=== PATIENT | male | born 1960 | race Caucasian/White ===

== ENCOUNTER 2020-10-10 18:01 | Emergency (ER) | payer MEDICAID ==
[2020-10-10] MEDS ORDERED: MVI, Adult with Vitamin K 10 ML, Thiamine 100 MG, Folic Acid 1 MG in Lactated Ringers 1... IV ONE ×4 (18:25)
--- NOTE | 2020-10-10 18:30 | EDM.PDOCBH ---
<Sandra Mcadams - Last Filed: 10/10/20 18:42> ED HPI GENERAL MEDICAL PROBLEM - General Chief Complaint: Drug or Alcohol Abuse Stated Complaint: DETOX Time Seen by Provider: 10/10/20 18:26 Source of Information: Reports: Patient, RN, RN Notes Reviewed History Limitations: Reports: No Limitations - History of Present Illness INITIAL COMMENTS - FREE TEXT/NARRATIVE: Patient presents to the ED via personal vehicle requesting assistance with detox from alcohol. The patient states he has been drinking about three "whiskey chokes" every day for the past three months. He states his last drink was three days ago. He has gone through detox from alcohol previously, most recently in May 2020 in [place]. He does attest to a history of seizure with detox; he is not currently taking any anti-seizure medications. He does attest to dizziness over the past five days and feels as though he is not balanced properly when he walks. He denies fever, shaking chills, headache, vision changes, cough, chest pain/pressure, palpitations, dyspepsia, abdominal pain, nausea, vomiting, dysuria, hematuria, diarrhea, melena, or hematochezia. He does attest to smoking one pack of cigarettes per day. He denies recreational drug use. - Related Data Allergies Allergy/AdvReac Type Severity Reaction Status Date / Time No Known Allergies Allergy Verified 10/10/20 18:09 Home Meds: Home Meds Acetaminophen 325 mg PO Q4HR PRN 05/21/20 [History] Folic Acid 1 mg PO DAILY 05/21/20 [History] Nicotine [Habitrol] 14 mg TRDERM DAILY PRN 05/21/20 [History] Pantoprazole [ProTONIX] 40 mg PO DAILY 05/21/20 [History] Albuterol/Ipratropium [DuoNeb 3.0-0.5 MG/3 ML] 3 ml NEB Q4H PRN 30 Days #1 box 06/10/20 [Rx] Past Medical History Gastrointestinal History: Reports: Pancreatitis Genitourinary History: Reports: Other (See Below) Other Genitourinary History: L hydrocele Psychiatric History: Reports: Other (See Below) Other Psychiatric History: alcohol abuse Endocrine/Metabolic History: Reports: Hypokalemia, Hypomagnesemia - Past Surgical History GI Surgical History: Reports: Hernia Repair/Other Social & Family History - Tobacco Use Tobacco Use Status *Q: Current Every Day Tobacco User Years of Tobacco use: 18 Packs/Tins Daily: 5 - Caffeine Use Caffeine Use: Reports: None - Alcohol Use Days Per Week of Alcohol Use: 7 Number of Drinks Per Day: 3 Total Drinks Per Week: 21 - Recreational Drug Use Recreational Drug Use: No ED ROS GENERAL - Review of Systems Review Of Systems: Comprehensive ROS is negative, except as noted in HPI. ED EXAM, BEHAVIORAL HEALTH - Physical Exam Exam: See Below Exam Limited By: No Limitations General Appearance: Alert, No Apparent Distress Eye Exam: Bilateral Eye: EOMI, Nystagmus (Jerk nystagmus), PERRL, Other (Scleral icterus) Throat/Mouth: Normal Inspection, Normal Voice, No Airway Compromise Head: Atraumatic, Normocephalic Neck: Normal Inspection, Supple, Non-Tender, Full Range of Motion Respiratory/Chest: Chest Non-Tender, Rhonchi Cardiovascular: Normal Peripheral Pulses, No Edema, No Gallop, No JVD, No Murmur, No Rub, Tachycardia GI/Abdominal: Normal Bowel Sounds, Soft, Non-Tender, No Distention, No Mass, Pelvis Stable Back Exam: Normal Inspection, Full Range of Motion. No: CVA Tenderness (L), CVA Tenderness (R) Extremities: Normal Inspection, Normal Range of Motion, Non-Tender, No Pedal Edema, Normal Capillary Refill Neurological: Alert, Normal Mood/Affect, CN II-XII Intact, Normal Cognition, Normal Gait, No Motor/Sensory Deficits, Oriented x 3, Opens Eyes to Commands Psychiatric: Alert, Normal Affect, Normal Cognition, Oriented Skin Exam: Warm, Dry, Intact, Normal color, No rash. No: Ecchymosis, Erythema, Mottled, Pallor, Petechiae Departure - Departure Disposition: Home, Self-Care 01 Clinical Impression: Alcohol abuse, Hypokalemia - Discharge Information Instructions: Potassium Content of Foods Forms: ED Department Discharge Additional Instructions: 1) see clinic Tuesday for alcohol counselling referral or 2) see Human Resources Tuesday for alcohol counselling rx given; ativan 1mg bid x 6 Sepsis Event Note (ED) - Evaluation Sepsis Screening Result: No Definite Risk <Armani Jacobson - Last Filed: 10/10/20 19:45> COURSE, BEHAVIORAL HEALTH COMP - Course Vital Signs: Last Vital Signs Temp 36.4 C 10/10/20 18:10 Pulse 135 H 10/10/20 18:10 Resp 16 10/10/20 18:10 BP 133/101 H 10/10/20 18:10 Pulse Ox 97 10/10/20 18:10 Orders, Labs, Meds: Active Orders 24 hr Category Date Time Status DRUG SCREEN URINE BIORAD [URCHEM] Urgent Lab 10/10/20 18:16 Ordered UA RFX ZHEN AND CULT IF INDIC [URIN] Stat Lab 10/10/20 18:16 Ordered Laboratory Tests 10/10/20 10/10/20 10/10/20 Range/Units 18:30 18:30 18:30 WBC 12.0 H (5.0-10.0) 10^3/uL RBC 4.37 L (4.6-6.2) 10^6/uL Hgb 15.0 (14.0-18.0) g/dL Hct 42.4 (40.0-54.0) % MCV 97.0 (80-100) fL MCH 34.3 H (27.0-34.0) pg MCHC 35.4 H (33.0-35.0) g/dL Plt Count 106 L (150-450) 10^3/uL Neut % (Auto) 77.2 H (42.2-75.2) % Lymph % (Auto) 14.0 L (20.5-50.1) % [place] % (Auto) 7.0 (2-8) % Eos % (Auto) 1.3 (1.0-3.0) % Baso % (Auto) 0.5 (0.0-1.0) % PT 11.8 (9.0-12.0) SEC INR 1.2 (0.9-1.2) APTT 25.0 (22.0-34.0) SEC Sodium 134 L (136-145) mmol/L Potassium 2.3 L* (3.5-5.1) mmol/L Chloride 92 L (98-107) mmol/L Carbon Dioxide 27 (21-32) mmol/L Anion Gap 17.3 H (7-13) mEq/L BUN 6 L (7-18) mg/dL Creatinine 0.95 (0.70-1.30) mg/dL Est Cr Clr Drug Dosing 77.76 mL/min Estimated GFR (MDRD) > 60 BUN/Creatinine Ratio 6.3 (No establ ref range) Glucose 131 H (74-99) mg/dL Calcium 8.6 (8.5-10.1) mg/dL Phosphorus 3.6 (2.6-4.7) mg/dL Magnesium 1.6 L (1.8-2.4) mg/dL Total Bilirubin 4.1 H (0.2-1.0) mg/dL AST 180 H (15-37) U/L ALT 32 (16-63) U/L Alkaline Phosphatase 333 H (46-116) U/L C-Reactive Protein 13.2 H (0.0-0.9) mg/dL Total Protein 7.7 (6.4-8.2) g/dL Albumin 2.9 L (3.4-5.0) g/dL Globulin 4.8 Albumin/Globulin Ratio 0.60 Ethyl Alcohol < 3 (0) mg/dL Medications Discontinued Medications Generic Name Dose Route Start Last Admin Trade Name Tony PRN Reason Stop Dose Admin Multivitamins/Minerals 10 ml/ 1,011.2 mls @ 999 mls/hr 10/10/20 18:25 10/10/20 18:35 Thiamine HCl 100 mg/ Folic IV 10/10/20 19:25 999 mls/hr Acid 1 mg/ Lactated Ringer's .BOLUS ONE Administration Lorazepam 0.5 mg 10/10/20 18:40 10/10/20 18:55 Ativan IVPUSH 10/10/20 18:41 0.5 mg ONETIME ONE Administration Lorazepam 1 mg 10/10/20 19:37 Ativan PO 10/10/20 19:38 ONETIME ONE Potassium Chloride 40 meq 10/10/20 19:37 Klor-Con 10 PO 10/10/20 19:38 ONETIME ONE Re-Assessment/Re-Exam: results discussed with pt who is feeling good presently, prefers home and will follow up with someone Tuesday for alcohol counselling. Departure - Departure Time of Disposition: 19:42 Condition: Good Sepsis Event Note (ED) - Focused Exam Vital Signs: Vital Signs Temp Pulse Resp BP Pulse Ox 10/10/20 18:10 36.4 C 135 H 16 133/101 H 97
[2020-10-10] MEDS ORDERED: LORazepam 2 MG/ML SDV IVPUSH ONE (18:40)
[2020-10-10 19:02] LABS: ANION GAP 17.3 mEq/L (7-13); CHLORIDE,CL 92 mmol/L (98-107); SODIUM,NA 134 mmol/L (136-145)
[2020-10-10] MEDS ORDERED: Potassium Chloride 10 MEQ Tab.ER PO ONE (19:37)
[2020-10-10] MEDS ORDERED: LORazepam 1 MG Tab PO ONE (19:37)
== END 2020-10-10 20:05 | disposition home or self-care (01) ==
LOC: DL.ED 18:01
DX: F10.10 Alcohol abuse, uncomplicated (principal); E87.6 Hypokalemia; F17.210 Nicotine dependence, cigarettes, uncomplicated; Z79.899 Other long term (current) drug therapy
CPT/HCPCS: 36415; 80053; 80307; 83735; 84100; 85025; 85610; 85730; 86140; 96365; 96375; 99284; A9270; J2060; J3411; J7120; J3490